=== PATIENT | female | born 1935 | race Caucasian/White ===

== ENCOUNTER → 2018-01-01 | Outpatient (CLI) | payer MEDICARE, OTHER | LOC: GMAH 10:46 | PROVIDERS: ATTEND Family Medicine | DX: I10 Essential (primary) hypertension (principal); N39.0 Urinary tract infection, site not specified ==

== ENCOUNTER → 2019-01-06 | Outpatient (CLI) | payer MEDICARE, OTHER | LOC: GMA MATASK 10:29 | PROVIDERS: ATTEND Family Medicine | DX: I10 Essential (primary) hypertension (principal) ==

== ENCOUNTER → 2020-01-12 | Outpatient (CLI) | payer MEDICARE, OTHER | LOC: LAB.NP 10:58 | PROVIDERS: ATTEND Family Medicine | DX: I10 Essential (primary) hypertension (principal) ==